=== PATIENT | male | born 1995 | race Two or more races ===

== ENCOUNTER → 2021-08-20 08:50 | Outpatient (CLI) | payer OTHER, SELFPAY ==
--- NOTE | 2021-08-20 09:04 | XR_ITS ---
FINAL REPORT CLINICAL HISTORY: ACTIVE TB FINDINGS: Two views of the chest were obtained. Cardiomegaly is noted. The mediastinum is normal. There is scarring in the right lung base. There is bilateral apical pleural thickening, right greater than left. There are bilateral upper lobe opacities, right greater than left. There is questionable right upper lobe cavitation. There is no pneumothorax. The bony thorax is intact. IMPRESSION: Findings consistent with patient's history of active TB with questionable right upper lobe cavitation. If indicated, CT could further evaluate. Reviewed, Interpreted and Dictated by Simon Salazar III, MD Transcribed by Jay Corea Authenticated and [facility]
== END ==
DX: A15.0 Tuberculosis of lung
CPT/HCPCS: 71046

== ENCOUNTER → 2022-01-14 10:31 | Outpatient (CLI) | payer OTHER, SELFPAY ==
--- NOTE | 2022-01-14 10:37 | XR_ITS ---
FINAL REPORT TECHNIQUE: Chest PA & Lateral CLINICAL HISTORY: A15.9 COMPARISON: 11/13/2021 FINDINGS: 2 views of the chest were performed. There is mild cardiomegaly. There is volume loss in the right hemithorax. There is abnormal opacity in the right apex and right apical pleural thickening. This is similar to prior exam and favored to be chronic. There is vertical scarring in the left upper lobe. There is no pneumothorax. The bony thorax appears intact. IMPRESSION: Chronic findings as above. Reviewed, Interpreted and Dictated by Arnie Talavera MD Transcribed by Kiana Johnson [facility]hentic[facility] and [facility]
== END ==
PROVIDERS: PCP Nurse Practitioner Family; Visit Provider Nurse Practitioner Family
DX: A15.9 Respiratory tuberculosis unspecified (principal)
CPT/HCPCS: 71046